=== PATIENT | female | born 1965 | race African-American/Black ===

== ENCOUNTER 2017-01-18 23:01 | Emergency (ER) | payer MEDICAID ==
[~2017-01-18] VITALS: Ht 160 cm; Wt 60.0 kg
[~2017-01-18 23:01] MED LIST: AMLO10TA80 PO; GLIP10TA10 PO; HYDR100T31 PO; LISI-186 PO; Lactulose PO; METO-293 PO; QUET200T PO; SIMV20TA2 PO
[2017-01-18] MEDS ORDERED: FAMOTIDINE 20MG/2ML VIAL IV STA (23:17)
[2017-01-18] MEDS ORDERED: METOCLOPRAMIDE HCL 10MG/2ML VIAL IV STA (23:17)
[2017-01-18] MEDS ORDERED: MORPHINE SULFATE 4 MG/ML CPJ (NOT FOR IM USE) IV STA (23:17)
[2017-01-18 23:44] LABS: BASOPHILS % 1.4 % (0.0-2.0); EOSINOPHILS % 3.8 % (0.0-5.0); HEMATOCRIT. 30.1 % (36.0-48.0); HEMOGLOBIN. 9.9 g/dL (12.0-16.0); LYMPHOCYTES % 29.2 % (20.0-50.0); MEAN CORPUSCULAR HEMOGLOBIN 27.3 pg (28.0-32.0); MEAN CORPUSCULAR VOLUME 83.5 fL (81.0-99.0); MEAN PLATELET VOLUME 7.7 fl (7.4-10.4); MONOCYTES % 8.3 % (2.0-8.0); NEUTROPHILS % 57.3 % (40.0-76.0); PLATELET 296 x1000/uL (130-400); RED BLOOD CELL COUNT 3.61 mill/uL (4.2-5.4); RED CELL DISTRIBUTION WIDTH 17.9 % (11.6-14.6)
[2017-01-18 23:52] LABS: CARBON DIOXIDE 24 mEq/L (21-32); CHLORIDE 103 mEq/L (98-107)
[2017-01-19] MEDS ORDERED: DIPHENHYDRAMINE 50MG/ML VIAL IM SCH (00:30)
[2017-01-19 05:11] VITALS: BP 171/95
== END 2017-01-19 05:41 | disposition home or self-care (01) ==
LOC: ER 23:01
DX: R10.13 Epigastric pain (principal); I12.0 Hypertensive chronic kidney disease with stage 5 chronic kidney disease or end stage renal disease; N18.6 End stage renal disease; E11.22 Type 2 diabetes mellitus with diabetic chronic kidney disease; K29.70 Gastritis, unspecified, without bleeding; Z99.2 Dependence on renal dialysis; Z72.0 Tobacco use; Z79.82 Long term (current) use of aspirin
CPT/HCPCS: 36415; 80053; 83690; 85025; 96372; 96374; 96375; 99284; J1200; J2270; J2765; Z7610; J3490

== ENCOUNTER 2018-04-16 11:31 | Inpatient (IN) | payer MEDICAID, OTHER ==
[~2018-04-16] VITALS: Ht 154.9 cm; Wt 63.5 kg
[~2018-04-16 11:31] MED LIST changes: +ATOR20TA PO; +BENA20TA10 PO; -GLIP10TA10 PO; -HYDR100T31 PO; -LISI-186 PO; -Lactulose PO; -METO-293 PO; +METR-218 PO; +PANT40TA4 PO; -QUET200T PO; -SIMV20TA2 PO
[2018-04-16] MEDS ORDERED: FAMOTIDINE 20MG/2ML VIAL IV STA (12:27)
[2018-04-16] MEDS ORDERED: HYDRALAZINE 20MG/ML VIAL IV ONE (12:30)
[2018-04-16] MEDS ORDERED: FENTANYL CITRATE/PF 50MCG/ML 2ML VIAL IV ONE (12:30)
[2018-04-16 13:18] LABS: BASOPHILS % 2.2 % (0.0-2.0); EOSINOPHILS % 2.8 % (0.0-5.0); HEMATOCRIT. 35.6 % (36.0-48.0); HEMOGLOBIN. 11.6 g/dL (12.0-16.0); LYMPHOCYTES % 24.1 % (20.0-50.0); MEAN CORPUSCULAR HEMOGLOBIN 26.4 pg (28.0-32.0); MEAN PLATELET VOLUME 8.8 fl (7.4-10.4); MONOCYTES % 8.7 % (2.0-8.0); NEUTROPHILS % 62.2 % (40.0-76.0); PLATELET 224 x1000/uL (130-400); RED BLOOD CELL COUNT 4.39 mill/uL (4.2-5.4); RED CELL DISTRIBUTION WIDTH 20.7 % (11.6-14.6)
[2018-04-16 13:23] LABS: CHLORIDE 93 mEq/L (98-107)
[2018-04-16 13:26] LABS: INR 1.1; PROTHROMBIN TIME 11.5 sec (9.1-11.1)
[2018-04-16 22:34] VITALS: BP 131/74
[2018-04-16 22:38] VITALS: BP 131/74
[2018-04-16] MEDS ORDERED: DOCUSATE SODIUM 100MG CAPSULE PO PRN (23:45)
[2018-04-16] MEDS ORDERED: GUAIFENESIN 200MG/10ML SUGAR FREE UDC PO PRN (23:45)
[2018-04-16] MEDS ORDERED: ONDANSETRON HCL 4MG/2ML INJ IV PRN (23:45)
[2018-04-16] MEDS ORDERED: HYDROCODONE/ACETAMINOPHEN 5/325MG TABLET PO PRN (23:45)
[2018-04-16] MEDS ORDERED: IPRATROPIUM/ALBUTEROL 0.5-3(2.5)MG/3ML NEB INH PRN (23:45)
[2018-04-16] MEDS ORDERED: MAGNESIUM/ALUMINUM HYDROXIDE/SIMETHICONE 30ML UDC PO PRN (23:45)
[2018-04-16] MEDS ORDERED: MORPHINE SULFATE 10MG/5ML ORAL SOLN UDC PO PRN (23:55)
[2018-04-17 00:05] VITALS: BP 130/76
[2018-04-17] MEDS: LORAZEPAM 2MG/ML CPJ IV PRN ×2 (00:55→08:53)
[2018-04-17 04:00] VITALS: BP 144/69
[2018-04-17] MEDS: IRON SUCROSE COMPLEX 100 MG/5 ML ML IV SCH (04:47)
[2018-04-17] MEDS ORDERED: DEXTROSE 50% WATER 50ML SYRINGE IV PRN (05:00)
[2018-04-17] MEDS: INSULIN LISPRO 100 UNITS/ML SUBCUT SCH ×4 (08:10→20:46)
[2018-04-17] MEDS: BLOOD SUGAR DIAGNOSTIC STRIP TEST SCH ×4 (08:16→20:46)
[2018-04-17] MEDS: ENOXAPARIN 30MG/0.3ML SYR SUBCUT SCH (08:48)
[2018-04-17] MEDS ORDERED: NA PHOS,M-B/NA PHOS,DI-BA ENEMA 118ML PR PRN (09:00)
[2018-04-17 12:00] VITALS: BP 190/114
[2018-04-17 12:51] LABS: BASOPHILS % 2.4 % (0.0-2.0); EOSINOPHILS % 5.9 % (0.0-5.0); HEMATOCRIT. 42.7 % (36.0-48.0); HEMOGLOBIN. 13.8 g/dL (12.0-16.0); LYMPHOCYTES % 26.3 % (20.0-50.0); MEAN CORPUSCULAR HEMOGLOBIN 26.2 pg (28.0-32.0); MEAN CORPUSCULAR VOLUME 80.7 fL (81.0-99.0); MEAN PLATELET VOLUME 8.6 fl (7.4-10.4); NEUTROPHILS % 60.4 % (40.0-76.0); PLATELET 196 x1000/uL (130-400); RED BLOOD CELL COUNT 5.29 mill/uL (4.2-5.4); RED CELL DISTRIBUTION WIDTH 21.4 % (11.6-14.6)
[2018-04-17 12:59] LABS: CHLORIDE 99 mEq/L (98-107)
[2018-04-17 13:08] LABS: LDL CHOLESTEROL 147 mg/dL (5-100)
[2018-04-17 13:10] LABS: HDL CHOLESTEROL 24 mg/dL (40-59); T4 FREE 0.46 ng/dL (0.76-1.46)
[2018-04-17 16:00] VITALS: BP 165/91
[2018-04-17 20:00] VITALS: BP 173/103
[2018-04-17] MEDS: CLONIDINE 0.1MG TABLET PO PRN (20:45)
[2018-04-18] VITALS: BP 153/82
[2018-04-18 04:00] VITALS: BP 152/81
[2018-04-18] MEDS: IRON SUCROSE COMPLEX 100 MG/5 ML ML IV SCH (05:31)
[2018-04-18] MEDS: DIPHENHYDRAMINE 50MG/ML VIAL IV PRN (05:32)
[2018-04-18] MEDS: BLOOD SUGAR DIAGNOSTIC STRIP TEST SCH ×4 (05:42→21:42)
[2018-04-18 07:56] VITALS: BP 197/105
[2018-04-18] MEDS: ENOXAPARIN 30MG/0.3ML SYR SUBCUT SCH (07:58)
[2018-04-18] MEDS: INSULIN LISPRO 100 UNITS/ML SUBCUT SCH ×4 (07:58→21:00)
[2018-04-18 12:05] VITALS: BP 167/89
[2018-04-18] MEDS: CLONIDINE 0.1MG TABLET PO PRN ×2 (13:42→21:46)
[2018-04-18] MEDS: ACETAMINOPHEN 325MG TABLET PO PRN (15:18)
[2018-04-18 15:36] VITALS: BP 186/106
[2018-04-18 20:00] VITALS: BP 199/100
[2018-04-19] VITALS: BP 186/106
[2018-04-19 04:00] VITALS: BP 162/88
[2018-04-19] MEDS: IRON SUCROSE COMPLEX 100 MG/5 ML ML IV SCH (04:15)
[2018-04-19] MEDS: LORAZEPAM 2MG/ML CPJ IV PRN (04:16)
[2018-04-19] MEDS: BLOOD SUGAR DIAGNOSTIC STRIP TEST SCH ×3 (07:03→21:43)
[2018-04-19] MEDS: INSULIN LISPRO 100 UNITS/ML SUBCUT SCH ×2 (08:10→21:00)
[2018-04-19 08:13] VITALS: BP 155/57
[2018-04-19] MEDS: ENOXAPARIN 30MG/0.3ML SYR SUBCUT SCH (10:00)
[2018-04-19 12:41] VITALS: BP 161/94
[2018-04-19 17:13] VITALS: BP 157/87
[2018-04-19 20:00] VITALS: BP 179/88
[2018-04-20] VITALS: BP 144/78
[2018-04-20] MEDS: IRON SUCROSE COMPLEX 100 MG/5 ML ML IV SCH (06:28)
[2018-04-20] MEDS: BLOOD SUGAR DIAGNOSTIC STRIP TEST SCH ×4 (06:40→21:00)
[2018-04-20] MEDS: INSULIN LISPRO 100 UNITS/ML SUBCUT SCH ×4 (07:28→21:00)
[2018-04-20 08:00] VITALS: BP 167/80
[2018-04-20] MEDS: ENOXAPARIN 30MG/0.3ML SYR SUBCUT SCH (08:51)
[2018-04-20] MEDS: BENAZEPRIL 10MG TABLET PO SCH ×2 (08:51→21:27)
[2018-04-20 12:00] VITALS: BP 170/84
[2018-04-20 16:00] VITALS: BP 168/86
[2018-04-20] MEDS ORDERED: VANCOMYCIN HCL 1000 MG/20 ML ORAL PO SCH (18:00)
[2018-04-20 19:37] LABS: BASOPHILS % 0.8 % (0.0-2.0); EOSINOPHILS % 2.5 % (0.0-5.0); HEMATOCRIT. 33.8 % (36.0-48.0); LYMPHOCYTES % 19.7 % (20.0-50.0); MEAN CORPUSCULAR HEMOGLOBIN 26.3 pg (28.0-32.0); MEAN CORPUSCULAR VOLUME 81.2 fL (81.0-99.0); MEAN PLATELET VOLUME 7.9 fl (7.4-10.4); MONOCYTES % 13.1 % (2.0-8.0); NEUTROPHILS % 63.9 % (40.0-76.0); PLATELET 128 x1000/uL (130-400); RED BLOOD CELL COUNT 4.16 mill/uL (4.2-5.4); RED CELL DISTRIBUTION WIDTH 21.8 % (11.6-14.6)
[2018-04-20 20:00] VITALS: BP 150/88
[2018-04-20] MEDS: CLONIDINE 0.1MG TABLET PO PRN (20:48)
[2018-04-20] MEDS: VANCOMYCIN HCL 1000 MG/20 ML ORAL PO SCH (21:31)
[2018-04-21] VITALS (7 sets, daily range): BP systolic 140–204; BP diastolic 78–88
[2018-04-21] MEDS: VANCOMYCIN HCL 1000 MG/20 ML ORAL PO SCH ×4 (01:00→20:17)
[2018-04-21] MEDS: ACETAMINOPHEN 325MG TABLET PO PRN (03:22)
[2018-04-21] MEDS: IRON SUCROSE COMPLEX 100 MG/5 ML ML IV SCH (05:24)
[2018-04-21] MEDS ORDERED: IRON SUCROSE COMPLEX 100 MG/5 ML ML IV SCH (06:00)
[2018-04-21] MEDS: INSULIN LISPRO 100 UNITS/ML SUBCUT SCH ×4 (08:10→20:31)
[2018-04-21] MEDS: BLOOD SUGAR DIAGNOSTIC STRIP TEST SCH ×4 (08:15→20:21)
[2018-04-21] MEDS: BENAZEPRIL 10MG TABLET PO SCH ×2 (09:00→20:18)
[2018-04-21] MEDS: ENOXAPARIN 30MG/0.3ML SYR SUBCUT SCH (09:18)
[2018-04-21] MEDS: CLONIDINE 0.1MG TABLET PO PRN ×2 (10:01→20:18)
[2018-04-21] MEDS ORDERED: IOHEXOL-300 100 ML BOTTLE ONE (19:22)
[2018-04-22] VITALS: BP 137/37
[2018-04-22] MEDS: VANCOMYCIN HCL 1000 MG/20 ML ORAL PO SCH ×2 (00:15→06:06)
[2018-04-22] MEDS: MORPHINE SULFATE 10MG/5ML ORAL SOLN UDC PO PRN ×2 (00:41→08:40)
[2018-04-22] MEDS: DIPHENHYDRAMINE 50MG/ML VIAL IV PRN ×2 (02:50→08:44)
[2018-04-22 04:00] VITALS: BP 129/37
[2018-04-22] MEDS: BLOOD SUGAR DIAGNOSTIC STRIP TEST SCH (06:24)
[2018-04-22 08:00] VITALS: BP 158/77
[2018-04-22] MEDS: INSULIN LISPRO 100 UNITS/ML SUBCUT SCH (08:10)
[2018-04-22] MEDS: BENAZEPRIL 10MG TABLET PO SCH (09:00)
[2018-04-22] MEDS: ENOXAPARIN 30MG/0.3ML SYR SUBCUT SCH (09:39)
[2018-04-22 11:05] VITALS: BP 140/76
== END 2018-04-22 12:38 | disposition home or self-care (01) | DRG 194 ==
LOC: ER 11:31 → 7WST 14:20 → EDBEDREQ 14:22 → EDBEDREQTM 14:22 → CANRESERV 17:55 → ENRESERV 17:55
PROVIDERS: ADMIT Internal Medicine; ATTEND Internal Medicine
PROC: 5A1D70Z Performance of Urinary Filtration, Intermittent, Less than 6 Hours Per Day (ICD-10-PCS; 2018-04-17)
PROC: 5A1D70Z Performance of Urinary Filtration, Intermittent, Less than 6 Hours Per Day (ICD-10-PCS; 2018-04-19)
PROC: 5A1D70Z Performance of Urinary Filtration, Intermittent, Less than 6 Hours Per Day (ICD-10-PCS; principal; 2018-04-21)
DX: I13.2 Hypertensive heart and chronic kidney disease with heart failure and with stage 5 chronic kidney disease, or end stage renal disease (principal); G93.40 Encephalopathy, unspecified; A04.72 Enterocolitis due to Clostridium difficile, not specified as recurrent; R18.8 Other ascites; E11.22 Type 2 diabetes mellitus with diabetic chronic kidney disease; N18.6 End stage renal disease; E87.70 Fluid overload, unspecified; I50.9 Heart failure, unspecified; Z91.19 Patient's noncompliance with other medical treatment and regimen; Z99.2 Dependence on renal dialysis
CPT/HCPCS: 36415; 71045; 74176; 76705; 80048; 80061; 82140; 82962; 83880; 84439; 84443; 84484; 87015; 87045; 87427; 87449; 87493; 93005; 96374; 96375; 97163; 99285; A6261; C1893; J0360; J1200; J1650; J2060; J3010; J3370; J3490; J7050; Q9967